=== PATIENT | female | born 1990 | race Caucasian/White ===

== ENCOUNTER 2018-09-18 10:46 | Emergency (ER) | payer SELFPAY ==
[~2018-09-18] VITALS: Ht 165.1 cm; Wt 63.5 kg
[~2018-09-18 10:46] MED LIST: CEPH500C PO
[2018-09-18] MEDS ORDERED: cefTRIAXone 1 GM/10 ML for IV (ROCEPHIN) IM ONE (11:30)
[2018-09-18] MEDS ORDERED: LIDOCAINE 1% INJ 20 ML 20 ML VIAL INJ ONE (11:30)
[2018-09-18 11:34] LABS: BILIRUBIN,URINE NEGATIVE (NEGATIVE); CLARITY,URINE CLEAR; COLOR,URINE YELLOW; GLUCOSE, URINE (UA) NEGATIVE (NEGATIVE); KETONES,URINE NEGATIVE (NEGATIVE); LEUKOCYTE ESTERASE ,URINE NEGATIVE (NEGATIVE); NITRITE,URINE NEGATIVE (NEGATIVE); PH,URINE 6.5 (5-9); PROTEIN,URINE NEGATIVE (NEGATIVE); UROBILINOGEN,URINE NORMAL (NORMAL)
--- NOTE | 2018-09-18 11:35 | ED GU-Female ---
General Chief Complaint: -Female Stated Complaint: POSS STD Nursing Triage Note: Pt reports she was in contact with someone who tested positive for chlamydia. Pt would like checked and treated for chlamydia. Pt denies any current symptoms. Nursing Sepsis Screen: No Definite Risk Source: patient Exam Limitations: no limitations History of Present Illness Date Seen by Provider: Sep 18, 2018 Time Seen by Provider: 11:15 Initial Comments Patient is a 28-year-old female who presents to the emergency room with complaints of exposure to chlamydia. Allergies and Home Medications Allergies Coded Allergies: No Known Drug Allergies (Unverified , 04/12/11) Home Medications Cephalexin Monohydrate 500 Mg Capsule, 1 EACH PO QID Prescribed by: ZOE MARIN on 04/12/112201 Past Pdzkkwk-Nhhsvf-Pbudmz Hx Patient Social History Alcohol Use: Occasionally Uses Recreational Drug Use: No Smoking Status: Current Someday Smoker Recent Foreign Travel: No Contact w/Someone Who Travel: No Recent Infectious Disease Expo: No Recent Hopitalizations: No Seasonal Allergies Seasonal Allergies: No Past Medical History Surgeries: No Respiratory: No Cardiac: No Neurological: No Genitourinary: No Gastrointestinal: No Musculoskeletal: No Endocrine: No HEENT: No Cancer: No Psychosocial: No Integumentary: No Blood Disorders: No Physical Exam Vital Signs Vital Signs - First Documented 09/18/18 11:14 Temp 98.1 Pulse 107 Resp 18 B/P (MAP) 154/85 (108) Pulse Ox 99 O2 Delivery Room Air Capillary Refill : Less Than 3 Seconds Height, Weight, BMI Height: 5'5.00" Weight: 140lbs. oz. 63.165809xf; BMI Method:Stated Progress/Results/Core Measures Suspected Sepsis Recent Fever Within 48 Hours: No Infection Criteria Present: None New/Unexplained Altered Menta: No Sepsis Screen: No Definite Risk SIRS Temperature:98.1 Pulse: 107 Respiratory Rate: 18 Blood Pressure 154 /85 Mean: 108 Results/Orders Lab Results Laboratory Tests Test 09/18/18 11:26 Range/Units Urine Color YELLOW Urine Clarity CLEAR Urine pH 6.5 5-9 Urine Specific [place] 1.005 L 1.016-1.022 Urine Protein NEGATIVE NEGATIVE Urine Glucose (UA) NEGATIVE NEGATIVE Urine Ketones NEGATIVE NEGATIVE Urine Nitrite NEGATIVE NEGATIVE Urine Bilirubin NEGATIVE NEGATIVE Urine Urobilinogen NORMAL NORMAL MG/DL Urine Leukocyte Esterase NEGATIVE NEGATIVE Urine RBC (Auto) NEGATIVE NEGATIVE Urine RBC NONE /HPF Urine WBC NONE /HPF Urine Squamous Epithelial Cells 0-2 /HPF Urine Crystals NONE /LPF Urine Bacteria NEGATIVE /HPF Urine Casts NONE /LPF Urine Mucus NEGATIVE /LPF Urine Culture Indicated NO My Orders Orders - YOLETTE MOLINA Ua Culture If Indicated (09/18/18 11:23) Chlamydia Trachomatis Urine (09/18/18 11:23) Neis Brennan Dna Urine Test (09/18/18 11:23) Azithromycin Tablet (Zithromax Tablet) (09/19/18 09:00) Lidocaine 1% Inj 20 Ml (Xylocaine 1% Inj (09/18/18 11:30) Ceftriaxone For Iv Use (Rocephin For I (09/18/18 11:30) Ceftriaxone For Im Use (Rocephin For Im (09/18/18 11:45) Vital Signs/I&O 09/18/18 11:14 Temp 98.1 Pulse 107 Resp 18 B/P (MAP) 154/85 (108) Pulse Ox 99 O2 Delivery Room Air Capillary Refill : Less Than 3 Seconds Blood Pressure Mean: 108 Departure Impression Primary Impression: Exposure to chlamydia Additional Impression: Possible exposure to STD Disposition: 01 HOME, SELF-CARE Condition: Stable/Unchanged Departure-Patient Inst. Decision time for Depature: 11:38 Referrals: NO,LOCAL PHYSICIAN (PCP/Family) Primary Care Physician Patient Instructions: Sexually-Transmitted Diseases (DC) Add. Discharge Instructions: Follow-up with her primary care provider within 1 week for recheck. Refrain from sexual intercourse until you have the culture results. Return back to the emergency room for any worsening symptoms or concerns as needed. All discharge instructions reviewed with patient and/or family. Voiced understanding. YOLETTE MOLINA Sep 18, 2018 11:35
[2018-09-18 11:42] LABS: BACTERIA,URINE NEGATIVE /HPF; SQUAMOUS EPITHELIAL CELL,UR 0-2 /HPF
[2018-09-18] MEDS ORDERED: cefTRIAXone 1,000 MG/2.86 ml vial (IM ONLY) IM ONE (11:45)
[2018-09-18] MEDS ORDERED: cefTRIAXone 1 GM/10 ML for IV (ROCEPHIN) ONE (12:05)
[2018-09-18] MEDS ORDERED: AZITHROMYCIN 250 MG TAB (ZITHROMAX) PO ONE (12:06)
[2018-09-18 12:26] VITALS: BP 154/85
--- OUTSIDE RECORDS SUMMARY | 2018-09-18 14:20 | XMS REPORT | Continuity of Care Document ---
Author Author [facility] Address Unknown Phone Unavailable Allergies There is no data. Medications There is no data. Problems Date Dx Coded Attending Type Code Diagnosis Diagnosed By 07/15/2011 RAIMUNDO YO APRN 466.0 BRONCHITIS, ACUTE 07/15/2011 RAIMUNDO YO APRN V65.42 COUNSELING - SMOKING CESSATION 02/17/2014 RAIMUNDO YO APRN 616.2 CYST OF BARTHOLIN'S GLAND 02/17/2014 RAIMUNDO YO APRN V25.01 CONTRACEPTION - ORAL CONTRACEPTION 02/17/2014 RAIMUNDO YO APRN V72.31 BRIDGE/STRUCTURE INSPECTION TEAM LEADER EXAM, ROUTINE 02/17/2014 RAIMUNDO YO APRN V74.5 STD SCREEN 02/17/2014 RAIMUNDO YO APRN V76.10 BREAST CANCER SCREENING 02/17/2014 RAIMUNDO YO APRN V76.2 CERVICAL CANCER SCREENING (PAP SMEAR) Procedures Code [place] [id number] ROUTINE VENIPUNCTURE 02/17/2014 57270 SYPHILLIS-[facility] 02/17/2014 95998 HIV ([facility]) 02/17/2014 02809 GC/CHLAM PROBE ([facility]) 02/17/2014 80473 PAP SMEAR 02/17/2014 Q0091 PAP SMEAR OBTAIN SMEAR 02/17/2014 34117 TRICHOMONAS (IN-HOUSE) 02/17/2014 65562 CULTURE UROGENITAL 02/18/2014 Results There is no data. Encounters ACCT No. Visit Date/Time Discharge Status Pt. Type Provider Facility Loc./Unit Complaint [id number] 02/17/2014 10:46:00 02/17/2014 23:59:59 CLS Outpatient RAIMUNDO YO APRN
[2018-09-19] MEDS ORDERED: AZITHROMYCIN 250 MG TAB (ZITHROMAX) PO SCH (09:00)
== END 2018-09-18 12:26 | disposition home or self-care (01) ==
LOC: EDUNIT# 10:46 → ER 10:47
DX: Z20.2 Contact with and (suspected) exposure to infections with a predominantly sexual mode of transmission (principal); F17.200 Nicotine dependence, unspecified, uncomplicated
CPT/HCPCS: 36415; 81000; 87491; 87591; 96372; 99284

== ENCOUNTER 2019-09-15 18:52 | Emergency (ER) | payer SELFPAY ==
[~2019-09-15] VITALS: Ht 165.1 cm; Wt 79.5 kg
--- NOTE | 2019-09-15 20:13 | ED Integumentary General ---
General Chief Complaint: Skin/Wound Problems Stated Complaint: RASH Nursing Triage Note: Pt to ED with c/o generalized rash covering most of body. Pt reports symptoms began yesterday morning and is unable to determine cause. Pt reports extreme itching. Pt reports taking benedryl. Source: patient Exam Limitations: no limitations History of Present Illness Date Seen by Provider: Sep 15, 2019 Time Seen by Provider: 20:10 Initial Comments To ER with reports of generalized itchy rash over most of her body since this morning. She is from [place], has been sleeping on a friend's couch is here for the holidays. Unsure what she may have come into contact with but suspects this is something allergic. She took a Benadryl did help with the itching. Timing/Duration: yesterday Severity: moderate Location: generalized Possible Cause: no cause identified Associated Symptoms: denies symptoms Allergies and Home Medications Allergies Coded Allergies: No Known Drug Allergies (Unverified , 04/12/11) Home Medications Cephalexin Monohydrate 500 Mg Capsule, 1 EACH PO QID Prescribed by: ZOE MARIN on 04/12/112 Patient Home Medication List Home Medication List Reviewed: Yes Review of Systems Review of Systems Constitutional: see HPI EENTM: see HPI Respiratory: no symptoms reported Cardiovascular: no symptoms reported Genitourinary: no symptoms reported Musculoskeletal: no symptoms reported Skin: see HPI Psychiatric/Neurological: No Symptoms Reported Endocrine: No Symptoms Reported Hematologic/Lymphatic: No Symptoms Reported Past Ctcyybg-Cdukhv-Vstemt Hx Patient Social History Alcohol Use: Occasionally Uses Alcohol Beverage of Choice: Beer Recreational Drug Use: Yes (marijuana) Smoking Status: Current Someday Smoker Type Used: Cigarettes 2nd Hand Smoke Exposure: Yes Recent Foreign Travel: No Contact w/Someone Who Travel: No Recent Infectious Disease Expo: No Recent Hopitalizations: No Physical Abuse: No Sexual Abuse: No Mistreated: No Seasonal Allergies Seasonal Allergies: No Past Medical History Surgeries: No Respiratory: No Cardiac: No Neurological: No Genitourinary: No Gastrointestinal: No Musculoskeletal: No Endocrine: No HEENT: No Cancer: No Psychosocial: No Integumentary: No Blood Disorders: No Physical Exam Vital Signs Vital Signs - First Documented 09/15/19 19:30 Temp 36.7 Pulse 94 Resp 13 B/P (MAP) 137/83 (101) Pulse Ox 98 O2 Delivery Room Air Capillary Refill : Less Than 3 Seconds General Appearance: WD/WN, no apparent distress HEENT: PERRL/EOMI, normal ENT inspection, TMs normal, other (no oral lesions) Neck: non-tender, full range of motion Cardiovascular: regular rate, rhythm, no murmur Respiratory: normal breath sounds, no respiratory distress, no accessory muscle use; No stridor, No wheezing Gastrointestinal: normal bowel sounds, non tender Neurologic/Psychiatric: alert, normal mood/affect, oriented x 3 Skin: normal color, warm/dry Skin Problem Location: other (generalized) Skin Problem Character: urticarial Progress/Results/Core Measures Results/Orders My Orders Orders - SAURAV MARTÍNEZ APRN Triamcinolone Acetonide Im (Kenalog-40) (09/15/19 20:15) Dexamethasone Injection (Decadron Inject (09/15/19 20:15) Vital Signs/I&O 09/15/19 19:30 Temp 36.7 Pulse 94 Resp 13 B/P (MAP) 137/83 (101) Pulse Ox 98 O2 Delivery Room Air Blood Pressure Mean: 101 Departure Communication (Admissions) States she has no money right now and would like shots her rather than pills as a prescription Impression Primary Impression: Urticaria Disposition: 01 HOME, SELF-CARE Condition: Improved Departure-Patient Inst. Decision time for Depature: 20:13 Referrals: NO,LOCAL PHYSICIAN (PCP/Family) Primary Care Physician Patient Instructions: Neri Add. Discharge Instructions: What asked the employees 1. Return to ER for any concerns 2. Follow-up with your doctor next week 3. Continue to use 1-2 Benadryl tablets every 4-6 hours as needed for pain or itching. All discharge instructions reviewed with patient and/or family. Voiced understanding. SAURAV MARTÍNEZ APRN Sep 15, 2019 20:13
[2019-09-15] MEDS ORDERED: DEXAMETHASONE 10 MG/ML (DECADRON) 1 ML VIAL IM ONE (20:15)
[2019-09-15] MEDS ORDERED: TRIAMCINOLONE ACET (KENALOG-40) 40 MG/ML 1 ML VIAL IM ONE (20:15)
[2019-09-15 20:28] VITALS: BP 137/83
== END 2019-09-15 20:28 | disposition home or self-care (01) ==
LOC: EDUNIT# 18:52 → ER 18:53
DX: L50.9 Urticaria, unspecified (principal); F17.210 Nicotine dependence, cigarettes, uncomplicated
CPT/HCPCS: 96372; 99284

== ENCOUNTER 2021-04-23 12:02 | Emergency (ER) | payer SELFPAY ==
[~2021-04-23] VITALS: Ht 165 cm; Wt 59.0 kg
--- NOTE | 2021-04-23 12:25 | ED Integumentary General ---
General Chief Complaint: Skin/Wound Problems Stated Complaint: POSS POISON NICCI Source: patient Exam Limitations: no limitations History of Present Illness Date Seen by Provider: Apr 23, 2021 Time Seen by Provider: 12:25 Initial Comments 31yo female to the ER with a complaint or red raised rash to the chin, lower lip and left side of the neck. Onset 24hours ago. She was outside on her mothers front porch a couple of days ago and thinks she might have come in contact with poison nicci. No swelling inside the mouth or difficulty swalling/speaking/ breathing. Timing/Duration: yesterday Location: face Possible Cause: other Modifying Factors: improves with calamine lotion Associated Symptoms: change in skin texture Allergies and Home Medications Allergies Coded Allergies: No Known Drug Allergies (Unverified , 04/12/11) Home Medications Cephalexin Monohydrate 500 Mg Capsule, 1 EACH PO QID Prescribed by: ZOE MARIN on 04/12/112 Patient Home Medication List Home Medication List Reviewed: Yes Review of Systems Review of Systems Constitutional: see HPI Respiratory: no symptoms reported Cardiovascular: no symptoms reported Gastrointestinal: no symptoms reported Genitourinary: no symptoms reported Musculoskeletal: no symptoms reported Skin: change in color, pruritus, rash All Other Systems Reviewed Negative Unless Noted: Yes Past Jjymrxp-Mrocsq-Tktcfk Hx Patient Social History Tobacco Use?: Yes Tobacco type used: Cigarettes Smoking Status: Light Tobacco Smoker Use of E-Cig and/or Vaping dev: No Substance use?: Yes Substance type: Marijuana Alcohol Use?: Yes Alcohol Frequency: Couple times a week Pt feels they are or have been: No Seasonal Allergies Seasonal Allergies: No Past Medical History Surgery/Hospitalization HX: DENIES Surgeries: No Respiratory: No Cardiac: No Neurological: No Genitourinary: No Gastrointestinal: No Musculoskeletal: No Endocrine: No HEENT: No Cancer: No Psychosocial: No Integumentary: No Blood Disorders: No Physical Exam Vital Signs Capillary Refill : General Appearance: WD/WN, no apparent distress Cardiovascular: regular rate, rhythm Respiratory: lungs clear, normal breath sounds, no respiratory distress, no accessory muscle use Extremities: normal range of motion Neurologic/Psychiatric: alert, normal mood/affect, oriented x 3 Skin: normal color, warm/dry Skin Problem Location: face Skin Problem Character: erythema, rash, swelling, warm (Erythematous raised warm area of skin across the chin down the left side of the face and onto the neck. No large blisters or bulla are noted. Not tender to touch. Patient endorses pruritus.) Progress/Results/Core Measures Results/Orders My Orders Orders - JÚNIOR GOLDMAN MD Dexamethasone Injection (Decadron Injec (04/23/21 12:30) Progress Progress Note : Time: 12:29 Progress Note decadron 8mg given Departure Impression Primary Impression: Contact dermatitis Qualified Codes: L25.8 - Unspecified contact dermatitis due to other agents Disposition: 01 HOME, SELF-CARE Condition: Stable Departure-Patient Inst. Decision time for Depature: 12:24 Referrals: [facility] [place],LOCAL PHYSICIAN (PCP) Primary Care Physician Patient Instructions: Dermatitis Add. Discharge Instructions: Use [id number] calamine lotion and [id number] Benadryl as needed for the symptoms of rash and itching. You can also apply Caladryl lotion but do not take extra Benadryl as you can easily overdose. If you have any worsening redness with swelling, shortness of breath or other emergent concerns please come back to the emergency room for reevaluation. JÚNIOR GOLDMAN MD Apr 23, 2021 12:25
[2021-04-23 12:45] VITALS: BP 0/0
== END 2021-04-23 12:45 | disposition home or self-care (01) ==
LOC: EDUNIT# 12:02 → ER 12:05
DX: L25.9 Unspecified contact dermatitis, unspecified cause (principal); F17.210 Nicotine dependence, cigarettes, uncomplicated
CPT/HCPCS: 99284